=== PATIENT | female | born 1990 | race Caucasian/White ===

== ENCOUNTER 2022-02-10 15:04 | Inpatient (IN) | payer MEDICAID ==
[~2022-02-10] VITALS: Ht 162.6 cm; Wt 97.1 kg
[2022-02-10] MEDS ORDERED: BETAMET ACET/BETAMET NA PH 30 MG/5 ML VIAL IM ONE (16:17)
[2022-02-10] MEDS ORDERED: TERBUTALINE SULFATE 1 MG/ML VIAL SUBCUT ONE (16:19)
[2022-02-10 16:53] LABS: BASOPHILS % (AUTO) 0.2 % (0.0-2.0); EOSINOPHILS % (AUTO) 0.3 % (0.0-4.0); HEMATOCRIT 29.9 % (36-48); HEMOGLOBIN 10.2 g/dL (12.0-16.0); LYMPHOCYTES # (AUTO) 2.4 K/uL (1.0-5.5); LYMPHOCYTES % (AUTO) 24.7 % (20.5-51.5); MEAN CORPUSCULAR HEMOGLOBIN 30 pg (27-31); MEAN CORPUSCULAR HGB CONC 34 % (32-36); MEAN CORPUSCULAR VOLUME 88 fL (79.0-98.0); MONOCYTES # (AUTO) 0.7 K/uL (0.0-1.0); MONOCYTES % (AUTO) 6.7 % (1.7-9.3); NEUTROPHILS # (AUTO) 6.7 K/uL (1.8-7.7); NEUTROPHILS % (AUTO) 68.1 % (40.0-70.0); PLATELET COUNT (AUTO) 268 K/uL (130-430); RED BLOOD CELL COUNT(AUTO) 3.41 MIL/uL (4.2-6.2); RED CELL DISTRIBUTION WIDTH 14.8 % (9.0-15.0); WHITE BLOOD COUNT (AUTO) 9.9 K/uL (4.8-10.8)
[2022-02-10 17:05] LABS: ALBUMIN 2.8 g/dL (3.4-4.8); CREATININE 0.46 mg/dL (0.55-1.30); POTASSIUM 3.9 mmol/L (3.5-5.1); TOTAL BILIRUBIN 0.2 mg/dL (0.0-1.0)
[2022-02-10] MEDS ORDERED: NIFEdipine (O.B. USE ONLY) 10 MG CAPSULE PO ONE (17:30)
[2022-02-10] MEDS ORDERED: ENOXAPARIN SODIUM 60 MG/0.6 ML SYRINGE SUBCUT SCH (19:00)
[2022-02-10 19:13] VITALS: BP_SYST 124
[2022-02-10] MEDS: LR 500 ML IV PRN (22:20)
[2022-02-10] MEDS: NIFEdipine (O.B. USE ONLY) 10 MG CAPSULE PO SCH (23:49)
[2022-02-11] MEDS: NIFEdipine (O.B. USE ONLY) 10 MG CAPSULE PO SCH ×2 (06:07→12:07)
[2022-02-11] MEDS: LR 500 ML IV PRN (08:27)
--- NOTE | 2022-02-11 08:59 | NUR ---
Edgar Approved: fFN approved by GRICELDA Garcia. Patient is in possible Pre-Term Labor and has a history of Early Term and Demise.
[2022-02-11] MEDS ORDERED: BETAMET ACET/BETAMET NA PH 30 MG/5 ML VIAL IM ONE (18:00)
[2022-02-15 20:06] LABS: FTA-Ab (T PALLIDUM) Non Reactive (Non Reactive)
== END 2022-02-11 18:20 | disposition home or self-care (01) | DRG 566 ==
LOC: SPU 15:04 → OBSVTOIN 17:26
PROVIDERS: ADMIT Obstetrics & Gynecology; ATTEND Obstetrics & Gynecology
DX: O60.03 Preterm labor without delivery, third trimester (principal); D68.59 Other primary thrombophilia; Z20.822 Contact with and (suspected) exposure to COVID-19; O99.113 Other diseases of the blood and blood-forming organs and certain disorders involving the immune mechanism complicating pregnancy, third trimester; Z3A.34 34 weeks gestation of pregnancy
CPT/HCPCS: 36415; 76805-TC; 80053; 82731; 85025; 86592; 86780; 86886; 86900; 86901; 87086; G0378; J0702; J1650; J3105